=== PATIENT | male | born 1955 | race Caucasian/White ===

== ENCOUNTER → 2018-03-26 | Outpatient (CLI) | payer BC ==
[2018-03-26 15:53] LABS: ABSOLUTE EOSINOPHILS # (AUTO) 0.1 10^3/uL (0.0-0.6); ABSOLUTE LYMPHOCYTES (AUTO) 0.5 10^3/uL (0.5-4.7); ABSOLUTE MONOCYTES (AUTO) 0.3 10^3/uL (0.1-1.4); ABSOLUTE NEUT (AUTO) 2.4 10^3/uL (1.7-8.2); BASOPHILS % (AUTO) 0.7 % (0-2); EOSINOPHILS % (AUTO) 3.9 % (0-6); HEMATOCRIT 43.9 % (37.9-51.0); HEMOGLOBIN 15.4 g/dL (13.5-17.0); LYMPHOCYTES % (AUTO) 15.7 % (13-45); MEAN CORPUSCULAR HEMOGLOBIN 30.5 pg (27.0-33.4); MEAN CORPUSCULAR HGB CONC 35.1 g/dL (32.0-36.0); MEAN CORPUSCULAR VOLUME 87 fl (80-97); MONOCYTES % (AUTO) 9.1 % (3-13); RED BLOOD COUNT 5.05 10^6/uL (4.35-5.55); RED CELL DISTRIBUTION WIDTH 14.3 % (11.5-14.0); SEGMENTED NEUTROPHILS % (AUTO) 70.6 % (42-78); TOTAL CELLS COUNTED % (AUTO) 100 %; WHITE BLOOD COUNT 3.5 10^3/uL (4.0-10.5)
[2018-03-26 16:03] LABS: BLOOD UREA NITROGEN 19 mg/dL (7-20)
[2018-03-26 16:24] LABS: PLATELET COUNT 74 10^3/uL (150-450)
== END ==
LOC: OD 14:17
PROVIDERS: ATTEND Radiology Radiation Oncology
DX: C25.0 Malignant neoplasm of head of pancreas (principal); C77.2 Secondary and unspecified malignant neoplasm of intra-abdominal lymph nodes
CPT/HCPCS: 36415; 82565; 84520; 85025

== ENCOUNTER → 2018-04-17 | Day surgery (SDC) | payer BC ==
[~2018-04-17] MED LIST: LIDOCAINE 1% INJ-PF (10 MG/ML) 30 ML SDV ONE
--- NOTE | 2018-04-17 15:17 | RADIOLOGY REPORT (SQ) ---
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 The patient was scanned and the lymph node of concern in the left inguinal region. This correlates w ith the area of concern on prior imaging studies. This area was targeted for ultrasound-guided core b iopsy. After sterile skin prep and 3 mL local lidocaine 1% for skin and deep tissue anesthesia, a 14 gauge c oaxial core biopsy needle was used to obtain several cores of tissue from the lesion. Under ultrasou nd guidance, a ribbon clip was placed in the areas sampled. There were no immediate post-procedure c omplications. The lymph node specimens were received by Stacia from cytology. Pathology is pending LIMITATIONS: None. FINDINGS: Ultrasound guided left inguinal lymph node biopsy with post biopsy clip placement. Pathol colin is pending IMPRESSION: ULTRASOUND-GUIDED CORE BIOPSY OF THE LEFT INGUINAL LYMPH NODE. PATHOLOGY PENDING. COMMENT: Patient medication list reviewed: Yes- Quality ID# [id number]:Eligible professional attests to doc umenting in the medical record they obtained, updated, or reviewed the patient's current medications. TECHNICAL DOCUMENTATION: JOB ID: [id number] [employer]- All Rights Reserved Reading location - IP/workstation name: [email or web address]
== END ==
LOC: RAD 12:27
PROVIDERS: ATTEND Radiology Radiation Oncology
DX: C25.0 Malignant neoplasm of head of pancreas (principal); C77.2 Secondary and unspecified malignant neoplasm of intra-abdominal lymph nodes
CPT/HCPCS: 88185 ×15; 88184; 88233; 88262; 88342 ×2; 88341 ×2; 88305 ×2; 38505; J3490

== ENCOUNTER → 2018-08-05 | Outpatient (CLI) | payer BC ==
--- NOTE | 2018-08-05 14:12 | RADIOLOGY REPORT (SQ) ---
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 Images reviewed with lung, soft tissue, and bone windows. Reconstructed coronal and sagittal MPR images reviewed. Delayed images for evaluat ion of the urinary system also acquired and evaluated. All images stored on PACS. All CT scanners at this facility use dose modulation, iterative reconstruc tion, and/or weight based dosing when appropriate to reduce radiation dose to as low as reasonably ac hievable (ALARA). [facility]: Dose Right [facility]: CareDose [facility]: Dose Right [facility]: Teradose 4D [facility]: [employer] CONTRAST TYPE AND DOSE: contrast/concentration: Isovue 350.00 mg/ml; Total Contrast Delivered: 100.0 ml; Total Saline Delivered: 72.0 ml RENAL FUNCTION: Creatinine 0.7 RADIATION DOSE: CT Rad equipment meets quality standard of care and radiation dose reduction techniq ues were employed. CTDIvol: 22.3 - 24.2 mGy. DLP: 1607 mGy-cm. . LIMITATIONS: None. FINDINGS: LOWER CHEST: Increased interstitial markings at the lung bases from pulmonary fibrosis LIVER: Small, nodular contour from cirrhosis. Recannulized umbilical vein. No focal masses SPLEEN: 20 cm in greatest length. Varices at the splenic hilum. PANCREAS: 3.9 x 3 cm mass is present at the pancreatic head axial image 36. Blurring of the fat plan es between the mass and the superior mesenteric vein. Atrophy of the pancreatic tail with dilatation of the remainder the pancreatic duct. This is new compared to 08/12/2015 CT abdomen pelvis. GALLBLADDER: Tiny stones layer dependently in the gallbladder. No gallbladder wall thickening or per icholecystic fluid. ADRENAL GLANDS: No significant masses or asymmetry. RIGHT KIDNEY AND URETER: No solid masses. 1 cm cyst right mid-pole kidney. No significant calcifica tions. No hydronephrosis or hydroureter. LEFT KIDNEY AND URETER: No solid masses. No significant calcifications. No hydronephrosis or hydr oureter. AORTA AND VESSELS: No aneurysm. No dissection. Renal arteries, SMA, celiac without stenosis. RETROPERITONEUM: 1 cm lymph node in the gallbladder fossa caps (unchanged from 08/12/2015). 1.3 x 1 c m lymph node along the right aspect of the celiac axis (was 2 x 1.7 cm on 08/12/2015). 1.1 x 1 cm ermelinda iac lymph node (was 1.5 cm on 08/04/2015). BOWEL AND PERITONEAL CAVITY: Patient drank oral contrast. No CT evidence of bowel obstruction. No f ree intraperitoneal air or fluid. Few descending colon diverticulitis APPENDIX: Not in the field of view ABDOMINAL WALL: No masses. No hernias. BONES: No significant or acute findings. OTHER: No other significant finding. IMPRESSION: 3.9 x 3 cm mass at the pancreatic head. Atrophy of the pancreatic body and tail. Portal hypertension with splenomegaly. No ascites Upper abdominal adenopathy TECHNICAL DOCUMENTATION: JOB ID: [id number] Quality ID # [id number]: Final reports with documentation of one or more dose reduction techniques (e.g., Au tomated exposure control, adjustment of the mA and/or kV according to patient size, use of iterative reconstruction technique) 2010 [employer]- All Rights Reserved Reading location - IP/workstation name: [email or web address]
== END ==
LOC: RAD 16:17
PROVIDERS: ATTEND Internal Medicine Hematology & Oncology
DX: C25.0 Malignant neoplasm of head of pancreas (principal); K76.6 Portal hypertension
CPT/HCPCS: 74160; 82565

== ENCOUNTER → 2018-11-28 | Outpatient (CLI) | payer BC ==
--- NOTE | 2018-11-28 11:58 | RADIOLOGY REPORT (SQ) ---
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 TECHNIQUE: Dynamic and static grayscale images acquired of the abdomen and recorded on PACS. Additio nal selected color Doppler and spectral images recorded. LIMITATIONS: None. FINDINGS: PANCREAS: Patient has a known 3 cm mass but this is not well visualized. LIVER: Echotexture is coarse with increased echogenicity consistent with fatty infiltration. LIVER VASCULATURE: Normal directional flow of the main portal vein and hepatic veins. GALLBLADDER: Gallstone(s). No pericholecystic fluid. No wall thickening. ULTRASOUND-DETECTED SUAREZ'S SIGN: Negative. INTRAHEPATIC DUCTS AND COMMON DUCT: CBD and intrahepatic ducts normal caliber. No filling defects. INFERIOR VENA CAVA: Normal flow. AORTA: No aneurysm. RIGHT KIDNEY: Normal size. Normal echogenicity. No solid or suspicious masses. No hydronephros is. No calcifications. LEFT KIDNEY: Normal size. Normal echogenicity. No solid or suspicious masses. No hydronephrosi s. No calcifications. SPLEEN:Chronic splenomegaly. PERITONEAL AND PLEURAL SPACES: No ascites or effusions. OTHER: No other significant finding. IMPRESSION: 1. Cholelithiasis. No evidence of acute cholecystitis. 2. Known pancreatic mass. 3. Chronic splenomegaly. TECHNICAL DOCUMENTATION: JOB ID: [id number] [employer]- All Rights Reserved Reading location - IP/workstation name: [email or web address]
== END ==
LOC: RAD 08:56
PROVIDERS: ATTEND Internal Medicine Hematology & Oncology
DX: C10.9 Malignant neoplasm of oropharynx, unspecified (principal); K80.20 Calculus of gallbladder without cholecystitis without obstruction; R16.1 Splenomegaly, not elsewhere classified
CPT/HCPCS: 76700; 93976

== ENCOUNTER → 2018-12-06 | Outpatient (CLI) | payer BC ==
--- NOTE | 2018-12-06 16:08 | RADIOLOGY REPORT (SQ) ---
EXAM DESCRIPTION: CT HEAD WITH COMPLETED DATE/TIME: 12/06/2018 3:50 pm REASON FOR STUDY: R41.0 DISORIENTATION, UNSPECIFIED C25.9 MALIGNANT NEOPLASM OF PANCREAS, UNSPECIFI ED R41.0 DISORIENTATION, UNSPECIFIED COMPARISON: CT brain 08/12/2015, 09/10/2009 TECHNIQUE: Axial images acquired through the brain with intravenous contrast. Images reviewed with b one, brain and subdural windows. Additional sagittal and coronal reconstructions were generated. Liz ges stored on PACS. All CT scanners at this facility use dose modulation, iterative reconstruction, and/or weight based d osing when appropriate to reduce radiation dose to as low as reasonably achievable (ALARA). [facility]: Dose Right [facility]: CareDose [facility]: Dose Right [facility]: Teradose 4D [facility]: [employer] CONTRAST TYPE AND DOSE: 94 mL of IV Omnipaque 350- low osmolar. RENAL FUNCTION: Creatinine 1.1 RADIATION DOSE: CT Rad equipment meets quality standard of care and radiation dose reduction techniq ues were employed. CTDIvol: 48.7 mGy. DLP: 1053 mGy-cm.. LIMITATIONS: None. FINDINGS: VENTRICLES: Normal size and contour. CEREBRUM: No masses. No hemorrhage. No midline shift. Normal rodriguez/white matter differentiation. No ev idence for acute infarction. No enhancing lesions. CEREBELLUM: No masses. No hemorrhage. No alteration of density. No evidence for acute infarction. No enhancing lesions. EXTRA-AXIAL SPACES: No fluid collections. No enhancing lesions. ORBITS AND GLOBE: No intra- or extraconal masses. Normal contour of globe without masses. CALVARIUM: No fracture. PARANASAL SINUSES: No fluid or mucosal thickening. SOFT TISSUES: No mass or hematoma. OTHER: No other significant finding. IMPRESSION: NORMAL BRAIN CT WITH CONTRAST. EVIDENCE OF ACUTE STROKE: NO. TECHNICAL DOCUMENTATION: JOB ID: [id number] Quality ID # [id number]: Final reports with documentation of one or more dose reduction techniques (e.g., Au tomated exposure control, adjustment of the mA and/or kV according to patient size, use of iterative reconstruction technique) 2010 [employer]- All Rights Reserved Reading location - IP/workstation name: [email or web address]
--- NOTE | 2018-12-06 16:39 | RADIOLOGY REPORT (SQ) ---
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 Co ntrasted imaging performed using helical scanning technique with dynamic intravenous contrast injecti on. Images reviewed with lung, soft tissue, and bone windows. Reconstructed coronal and sagittal MPR images reviewed. Delayed images for evaluation of the urinary system also acquired and evaluated. All images stored on PACS. All CT scanners at this facility use dose modulation, iterative reconstruction, and/or weight based d osing when appropriate to reduce radiation dose to as low as reasonably achievable (ALARA). [facility]: Dose Right [facility]: CareDose [facility]: Dose Right [facility]: Teradose 4D [facility]: [employer] CONTRAST TYPE AND DOSE: contrast/concentration: Isovue 350.00 mg/ml; Total Contrast Delivered: 94.0 ml; Total Saline Delivered: 71.0 ml RENAL FUNCTION: Creatinine 1.1 RADIATION DOSE: CT Rad equipment meets quality standard of care and radiation dose reduction techniq ues were employed. CTDIvol: 23.4 - 24.2 mGy. DLP: 1743 mGy-cm.. LIMITATIONS: None. FINDINGS: LOWER CHEST: Pulmonary fibrosis is present at both lung bases LIVER GALLBLADDER SPLEEN AND PANCREAS: Liver is cirrhotic, with the nodular contour and huge collate rals along the periumbilical anterior abdominal wall fed by the umbilical artery. Since the prior exam 08/05/2018, patient has developed 3 low-density masses in the liver worrisome for metastatic disease as follows: Right lobe liver 1.6 cm axial image 35 A right lobe liver 1.8 cm diameter axial image 31 Inferior left lobe liver 2.2 cm diameter axial image 30 There is now moderate intrahepatic biliary ductal dilatation, new compared to 08/05/2018. Diffuse ga llbladder distention with stones. Spleen is enlarged, 20 cm in length, stable. Persistent pancreatic head mass, 4 x 3 cm in size unchanged from 08/05/2018. However, there is now ex tension of tumor into the 2nd portion of the duodenum with circumferential wall thickening and lumina l narrowing. The pancreatic neck and body are atrophic. ADRENAL GLANDS: No significant masses or asymmetry. RIGHT KIDNEY AND URETER: No solid masses. No significant calcification. No hydronephrosis or hydroure ter. LEFT KIDNEY AND URETER: No solid masses. No significant calcification. No hydronephrosis or hydrouret er. AORTA AND VESSELS: No aneurysm. No dissection. Renal arteries, SMA, celiac without stenosis. RETROPERITONEUM: No retroperitoneal adenopathy, hemorrhage or masses. BOWEL AND PERITONEAL CAVITY: No masses or inflammatory changes. No free fluid or peritoneal masses. Patient drank oral contrast without CT evidence of bowel obstruction. APPENDIX: Normal. ABDOMINAL WALL: No masses. No hernias. BONES: No significant or acute findings. OTHER: No other significant finding. IMPRESSION: Progression of biliary ductal dilatation compared to 08/05/2018, with moderate intrahepat ic biliary ductal dilatation on today's study, and distention of the gallbladder. Although the overall size of the pancreatic head tumor is similar compared to 08/05/2018, there is inc reasing involvement of the 2nd portion of duodenum with significant luminal narrowing. Persistent cirrhosis, portal hypertension and massive splenomegaly without ascites. No bulky upper a bdominal adenopathy TECHNICAL DOCUMENTATION: JOB ID: [id number] Quality ID # 436: Final reports with documentation of one or more dose reduction techniques (e.g., Au tomated exposure control, adjustment of the mA and/or kV according to patient size, use of iterative reconstruction technique) 2010 [employer]- All Rights Reserved Reading location - IP/workstation name: [email or web address]
== END ==
LOC: RAD 12:56
PROVIDERS: ATTEND Internal Medicine Hematology & Oncology
DX: C25.9 Malignant neoplasm of pancreas, unspecified (principal); R41.0 Disorientation, unspecified
CPT/HCPCS: 70460; 74160

== ENCOUNTER 2018-12-10 22:43 | Emergency (ER) | payer BC ==
[2018-12-10] MEDS ORDERED: ASPIRIN 81 MG TABLET, CHEWABLE PO ONE (23:37)
[2018-12-11 00:01] LABS: HEMOGLOBIN 14.4 g/dL (13.5-17.0); MEAN CORPUSCULAR HEMOGLOBIN 28.7 pg (27.0-33.4); MEAN CORPUSCULAR HGB CONC 34.2 g/dL (32.0-36.0); MEAN CORPUSCULAR VOLUME 84 fl (80-97); PLATELET COUNT 106 10^3/uL (150-450); RED BLOOD COUNT 5.01 10^6/uL (4.35-5.55); RED CELL DISTRIBUTION WIDTH 17.1 % (11.5-14.0)
[2018-12-11 00:05] LABS: ALANINE AMINOTRANSFERASE 43 U/L (21-72); ALBUMIN 3.4 g/dL (3.5-5.0); ALKALINE PHOSPHATASE 237 U/L (38-126); ANION GAP 15 (5-19); ASPARTATE AMINO TRANSFERASE 31 U/L (17-59); BILIRUBIN,DIRECT 16.9 mg/dL (0.0-0.4); BILIRUBIN,TOTAL 18.7 mg/dL (0.2-1.3); BLOOD UREA NITROGEN 48 mg/dL (7-20); CALCIUM 10.2 mg/dL (8.4-10.2); CARBON DIOXIDE 18 mmol/L (22-30); CHLORIDE 104 mmol/L (98-107); CREATINE KINASE 65 U/L (55-170); GLUCOSE 158 mg/dL (75-110); POTASSIUM 3.7 mmol/L (3.6-5.0); TOTAL PROTEIN 5.9 g/dL (6.3-8.2)
[2018-12-11 00:16] LABS: ABSOLUTE LYMPHOCYTES# (MANUAL) 0.4 10^3/uL (0.5-4.7); ABSOLUTE MONOCYTES # (MANUAL) 0.4 10^3/uL (0.1-1.4); ABSOLUTE NEUTROPHILS# (MANUAL) 6.1 10^3/uL (1.7-8.2); BASOPHILS % (MANUAL) 0 % (0-2); EOSINOPHILS % (MANUAL) 2 % (0-6); LYMPHOCYTES % (MANUAL) 6 % (13-45); MONOCYTES % (MANUAL) 5 % (3-13); SEGMENTED NEUTROPHILS % (MAN) 87 % (42-78); TOTAL CELLS COUNTED 100
[2018-12-11 00:17] LABS: CREATINE KINASE MB 1.24 ng/mL (<4.55)
[2018-12-11 00:18] LABS: ANISOCYTOSIS 1+; BURR CELLS 1+; OVALOCYTES 1+; PLATELET COMMENT DECREASED
[2018-12-11 00:19] LABS: HELMET CELLS SLIGHT
[2018-12-11 00:21] LABS: TROPONIN I < 0.012 ng/mL
--- NOTE | 2018-12-11 00:24 | RADIOLOGY REPORT (SQ) ---
EXAM DESCRIPTION: XR CHEST 1 VIEW COMPLETED DATE/TME: 12/10/2018 23:37 CLINICAL HISTORY: 63 years, Male, cp COMPARISON: 08/12/2015 chest NUMBER OF VIEWS: 1 TECHNIQUE: Portable chest LIMITATIONS: None. FINDINGS: Heart size is normal. Low lung volumes with coarse bibasilar interstitial change. Osteopenia. No pneumothorax. Mild atheromatous change thoracic aorta. IMPRESSION: Low lung volumes. Coarse bibasilar interstitial changes could reflect minor interstitial edema and/or pneumonitis copyright 2010 [employer]- All Rights Reserved
[2018-12-11] MEDS ORDERED: LIDOCAINE 2% VISCOUS SOLN 20 ML UDCUP PO ONE (01:45)
[2018-12-11] MEDS ORDERED: FAMOTIDINE 20 MG TABLET PO ONE (01:45)
[2018-12-11] MEDS ORDERED: METOCLOPRAMIDE HCL ORAL SOLN 10 MG/10 ML UDCUP PO ONE (01:45)
[2018-12-11] MEDS ORDERED: MAG HYDROX/AL HYDROX/SIMETH SUSP 30 ML UDCUP PO ONE (01:45)
[2018-12-11] MEDS ORDERED: SUCRALFATE 1 GM TABLET PO ONE (01:45)
--- NOTE | 2018-12-11 01:51 | ER Document Report ---
ED General - General Chief Complaint: Chest Pain Stated Complaint: CHEST PAIN Time Seen by Provider: 12/11/18 00:23 Primary Care Provider: JAROD CARRANZA MD [Primary Care Provider] - Follow up as needed Cannot obtain history due to: Altered mental status Notes: Patient is a 63-year-old male with a past medical history of pancreatic cancer who presents with his due to chest burning. History is extremely limited as the patient is profoundly confused and unable to provide meaningful history. Per the at the bedside the patient has had multiple episodes of nausea vomiting for the past several weeks effectively anytime he tries to eat much of anything. The patient complained of chest burning after apparently having an episode of vomiting today prompting the to bring him into the emergency department. Patient currently denies any symptoms, is accusing the of forrest piper about his symptoms to make him come to the hospital. History otherwise limited secondary to patient's confusion. In regards the patient's confusion states this is been ongoing for the past several weeks and is not new or different tonight. He is following with Dr. Eisenberg and had CT imaging of his abdomen and pelvis as well as his head on the of this month TRAVEL OUTSIDE OF THE [place] IN LAST 30 DAYS: No - Related Data Allergies/Adverse Reactions: No Known Allergies Allergy (Verified 12/03/13 10:45) Past Medical History - General Information source: Relative Cannot obtain history due to: Altered mental status - Social History Smoking Status: Former Smoker Frequency of alcohol use: None Drug Abuse: None Lives with: Spouse/Significant other Family History: Reviewed & Not Pertinent - Past Medical History Cardiac Medical History: Reports: Hx Hypertension GI Medical History: Reports: Hx Cirrhosis Psychiatric Medical History: Reports: Hx Bipolar Disorder, Hx Depression - Immunizations Hx Diphtheria, Pertussis, Tetanus Vaccination: Yes Review of Systems - Review of Systems Notes: Constitutional: Negative for fever. HENT: Negative for sore throat. Eyes: Negative for visual changes. Cardiovascular: Negative for chest pain. Respiratory: Negative for shortness of breath. Gastrointestinal: Negative for abdominal pain, vomiting or diarrhea. Genitourinary: Negative for dysuria. Musculoskeletal: Negative for back pain. Skin: Negative for rash. Neurological: Negative for headaches, weakness or numbness. 10 point ROS negative except as marked above and in HPI. Physical Exam - Vital signs Vitals: Temp Pulse Resp BP Pulse Ox 97.3 F 100 24 H 93/56 L 96 12/10/18 23:01 12/10/18 23:01 12/10/18 23:01 12/10/18 23:01 12/10/18 23:01 Interpretation: Hypotensive Notes: PHYSICAL EXAMINATION: GENERAL: Appears older than stated age, unwell in appearance HEAD: Atraumatic, normocephalic. EYES: Pupils equal round and reactive to light, extraocular movements intact, sclera icterus present, conjunctiva are normal. ENT: nares patent, oropharynx clear without exudates. Moist mucous membranes. NECK: Normal range of motion, supple without lymphadenopathy LUNGS: Breath sounds clear to auscultation bilaterally and equal. No wheezes rales or rhonchi. HEART: Regular rate and rhythm without murmurs ABDOMEN: Soft, nontender, normoactive bowel sounds. No guarding, no rebound. No masses appreciated. EXTREMITIES: Normal range of motion, no pitting or edema. No cyanosis. NEUROLOGICAL: No focal neurological deficits. Moves all extremities spontaneously and on command. PSYCH: Alert, somewhat agitated, oriented only to person. SKIN: Warm, Dry, diffuse icteric changes Course - Re-evaluation Re-evalutation: 12/11/18 01:49 Patient presents with complaints of chest burning. At the time of my exam the patient adamantly denies any symptoms, becomes quite agitated with his when she alleges that he was complaining of chest burning earlier today. The patient denies any symptoms currently, states he would like to go home immediately. Denies shortness of breath. Patient is profoundly confused, oriented only to person. Initial vitals show mild tachycardia although this is resolved at the time of my assessment with a heart rate of 92. Saturations at 96% on room air. Patient has a history of pancreatic cancer with biliary obstruction and is visibly icteric on exam. Initially had concern for pulmonary embolus based on history of chest pain in the setting of cancer with active chemotherapy. CTA was considered although patient adamantly denies any symptoms at the time of my evaluation, and herself notes that the patient did not complain of any s hortness of breath and that his symptoms started after an episode of vomiting. Troponin negative. Chest x-ray is clear. EKG unremarkable. Given market bilirubin elevation I did discuss this case with the oncologist on-call . He advised that we consider transferring the patient to [facility] for biliary stent versus admit for hospice. I did discuss with the as the patient does not have capacity. At this point she would prefer to follow-up as an outpatient as she would like to speak to additional family members prior to making any further decisions on care. She states that the patient has been yellow, confused, and having extreme difficulty tolerating any oral intake for several weeks and nothing is new or different otherwise tonight and that she only came to the hospital with the patient because he was complaining of chest burning. She states that she would rather have an opportunity to fully discuss with family prior to making any further decisions. At this time will discharge with return precautions and follow-up recommendations. Verbal discharge instructions given a the bedside and opportunity for questions given. Medication warnings reviewed. is in agreement with this plan and has verbalized understanding of return precautions and the need for follow-up with Dr. Eisenberg tomorrow as scheduled. - Vital Signs Vital signs: Temp Pulse Resp BP Pulse Ox 97.9 F 72 22 H 109/64 96 12/11/18 02:40 12/11/18 02:40 12/11/18 02:40 12/11/18 02:40 12/11/18 02:40 - Laboratory Result Diagrams: 12/10/18 23:13 12/10/18 23:13 Laboratory results interpreted by me: 12/10/18 12/10/18 23:13 23:13 RDW 17.1 H Plt Count 106 L Seg Neuts % (Manual) 87 H Lymphocytes % (Manual) 6 L Abs Lymphs (Manual) 0.4 L Carbon Dioxide 18 L BUN 48 H Creatinine 1.66 H Est GFR ( Amer) 51 L Est GFR (Non-Af Amer) 42 L Glucose 158 H Total Bilirubin 18.7 H Direct Bilirubin 16.9 H Alkaline Phosphatase 237 H Total Protein 5.9 L Albumin 3.4 L - Diagnostic Test Radiology reviewed: Image reviewed, Reports reviewed Radiology results interpreted by me: 12/11/18 02:47 Chest x-ray: No acute infiltrate or pneumothorax - EKG Interpretation by Me Additional EKG results interpreted by me: 12/11/18 02:47 Sinus rhythm, rate 95. QT prolonged at 513. No ST elevations or depressions. Discharge - Discharge Clinical Impression: Confusion, Elevated bilirubin, Burning chest pain Condition: Serious Disposition: HOME, SELF-CARE Additional Instructions: Please follow-up with Dr. Eisenberg tomorrow as planned. As we discussed you will need to discuss with her whether or not you would like to proceed with hospice versus consideration of a biliary stent. Please return if you develop worsening symptoms, pass out, develop a fever greater than 100.4 F, or have any other symptoms that are worrisome to you. Referrals: JAROD CARRANZA MD [Primary Care Provider] - Follow up as needed
[2018-12-11 03:05] VITALS: BP 109/64
--- NOTE | 2018-12-11 22:12 | EKG REPORT ---
SEVERITY:- ABNORMAL ECG - SINUS RHYTHM PROLONGED QT INTERVAL : Confirmed by: Yumiko Deng MD 11-Dec-2018 22:12:08
== END 2018-12-11 03:05 | disposition home or self-care (01) ==
LOC: ER 22:43
DX: R41.0 Disorientation, unspecified (principal); R07.89 Other chest pain; E80.6 Other disorders of bilirubin metabolism; I10 Essential (primary) hypertension; Z85.07 Personal history of malignant neoplasm of pancreas
CPT/HCPCS: 36415; 71045; 80053; 82140; 82550; 82553; 84484; 85025; 93005; 93010; 99285